=== PATIENT | female | born 1975 | race Caucasian/White ===

== ENCOUNTER 2022-05-30 15:25 | Observation (INO) | payer OTHER, SELFPAY ==
[2022-05-30] VITALS (37 sets, daily range): BP systolic 148–189; BP diastolic 69–106; PULSE 80–115; RESP 12–22; TEMP 36.2–36.9; O2SAT 98–100; BMI 37.4
--- NOTE | ~2022-05-30 | NM_ITS ---
EXAMINATION: NM thomas stress w perfusion DATE: 05/31/2022 13:29 INDICATION: Chest pain. TECHNIQUE: Rest images were obtained following intravenous administration of 10.5 mCi Tc99m tetrofosm in (Myoview). The patient was infused intravenously with Lexiscan (regadenoson). Then, 33 mCi Tc99m t etrofosmin (Myoview) was administered intravenously, and stress images were obtained. Data was recons tructed into short axis and horizontal and vertical long axis SPECT images. Gated SPECT images were a lso obtained. COMPARISON: None. FINDINGS: There is no definite reversible or fixed perfusion abnormality to suggest ischemia or infar ction. There is no segmental wall motion abnormality. Left ventricular ejection fraction measures > 70%. IMPRESSION: 1. No definite ischemia or infarct. 2. Normal left ventricular ejection fraction measuring >70%. Reviewed, dictated and finalized at location A. CELL TECHNICIAN
--- NOTE | ~2022-05-30 | XR_ITS ---
EXAMINATION: XR chest 2V DATE: 05/30/2022 16:12 INDICATION: Left chest pain. TECHNIQUE: Frontal and lateral views of the chest were obtained. COMPARISON: None. FINDINGS: The chest demonstrates clear lungs without pneumonia, pleural effusion, or pneumothorax. Th e heart size is normal. IMPRESSION: 1. No acute cardiopulmonary disease. Reviewed, dictated and finalized at location A. MINER
--- NOTE | 2022-05-30 15:29 | ECG_ITS ---
Measurements Intervals [place] Rate: 76 P: 59 NM: 161 QRS: 50 QRSD: 90 T: 9 QT: 366 QTc: 413 Interpretive Statements SINUS RHYTHM WITH SINUS ARRHYTHMIA BORDERLINE ST-T WAVE ABNORMALITY- ANTEROLAT/INF LEADS BORDERLINE ECG NO PREVIOUS ECG AVAILABLE FOR COMPARISON Electronically Signed On 05-30-2022 16:34:59 UNIT MANAGER RN by Mick Begum D.O.
[2022-05-30 15:51] LABS: Basophils Percent Auto 0.2 % (0.2-1.2); Eosinophils Absolute Auto 0.3 K/mm3 (0-0.3); Eosinophils Percent Auto 2.8 % (0-4.4); Hematocrit 36.9 % (37.0-47.0); Hemoglobin 11.8 g/dL (12.0-15.0); Immature Granulocyte Absolute 0.04 K/mm3 (0.00-0.031); Immature Granulocyte Percent A 0.4 % (0-0.5); Lymphocytes Absolute Auto 3.29 K/mm3 (0.9-3.2); Lymphocytes Percent Auto 36.8 % (18.3-44.2); Mean Corpuscular Hemoglobin 28.5 pg (26-34); Mean Corpuscular Volume 89.1 fl (80-100); Mean Platelet Volume 9.6 fl (7.4-10.4); Monocytes Absolute Auto 0.5 K/mm3 (0.1-0.6); Monocytes Percent Auto 5.7 % (2.6-8.5); Neutrophils Absolute Auto 4.8 K/mm3 (1.3-6.7); Neutrophils Percent Auto 54.1 % (45.5-73.1); Platelet Count Result 333 k/mm3 (150-375); Red Blood Count 4.14 M/mm3 (4.2-5.4); Red Cell Distribution Width 13.1 % (11.5-14.5); White Blood Count 8.9 K/mm3 (4.5-10.0)
[2022-05-30 15:53] LABS: Alanine Aminotransferase 32 U/L (6-35); Albumin Level 4.4 g/dL (3.5-5.1); Alkaline Phosphatase 88 U/L (38-126); Anion Gap 8 mmol/L (8-16); Aspartate Amino Transferase 23 U/L (14-36); Bilirubin,Total 0.4 mg/dL (0.2-1.3); Blood Urea Nitrogen 10 mg/dL (7-17); Calcium 9.2 mg/dL (8.4-10.2); Carbon Dioxide 28 mmol/L (22-30); Chloride 103 mmol/L (98-107); Estimated CRCL calculation 127 ml/min; Estimated Glomerular Filt Rate > 60; Glucose 122 mg/dL (65-110); Lipase 42 U/L (23-300); Potassium 3.8 mmol/L (3.4-5.0); Sodium 139 mmol/L (137-145)
[2022-05-30 15:54] LABS: Prothrombin Time 12.4 Seconds (11.1-14.7)
[2022-05-30 15:55] LABS: Partial Thromboplastin Time 26.7 SECONDS (22.3-36.8)
[2022-05-30 16:05] LABS: Troponin I < 0.012 ng/mL (0.000-0.034)
[2022-05-30] MEDS: ASPIRIN 81 MG CHEWABLE TABLET 324 MG PO (17:41)
--- NOTE | 2022-05-30 18:11 | ED.CHESTPAIN ---
HPI - Chest Pain General Chief Complaint: Chest Pain <ZULLY Arizmendi Last Filed: 05/31/22 02:06> Stated Complaint: CP <ZULLY Arizmendi Last Filed: 05/31/22 02:06> Time Seen by Provider: 05/30/22 17:39 <ZULLY Arizmendi Last Filed: 05/31/22 02:06> Source: patient <ZULLY Arizmendi Last Filed: 05/31/22 02:06> Mode of arrival: ambulatory <ZULLY Arizmendi Last Filed: 05/31/22 02:06> Limitations: no limitations <ZULLY Arizmendi Last Filed: 05/31/22 02:06> History of Present Illness HPI narrative: Patient is a 47-year-old female who presents the ED with report of chest pain. Patient reports she began feeling off around 10:30 AM this morning at work. She developed diaphoresis, nausea, dizziness at around 11 AM. She then developed pain just to the left of her sternum, sharp and stabbing in nature, radiating to her left shoulder and through to her back. She states the pain initially lasted for approximately 1 hour before improving. The pain has been intermittent since then, with episodes occurring every 30 minutes or so. She denies any pain currently or for the last hour since being in the ER. She did also report having tingling in her extremities, mild shortness of breath. She denies any vomiting, abdominal pain, lower extremity pain or swelling, recent cough or cold symptoms, fevers, or history of coronary artery disease. Patient is a history of prediabetes, hypertension on lisinopril, borderline hypercholesterolemia, family history of heart disease in her father at age 68. No smoking history. No history of blood clots. <ZULLY Arizmendi Last Filed: 05/31/22 02:06> Related Data Home Medications: Home Medications Medication Instructions Recorded Confirmed albuterol sulfate 90 mcg/actuation 2 puff inhalation Q6H PRN 05/30/22 05/30/22 aerosol inhaler Shortness Of Breath fluticasone furoate 100 1 inh inhalation DAILY 05/30/22 05/30/22 mcg-vilanterol 25 mcg/dose inhalation powder (Breo Ellipta) lisinopril 20 mg tablet 20 mg PO DAILY 05/30/22 05/30/22 omeprazole 40 mg capsule,delayed 40 mg PO Q12H 05/30/22 05/30/22 release trazodone 50 mg tablet 50 mg PO HS PRN Insomnia 05/30/22 05/30/22 <Demi Brown PA-C - Last Filed: 05/31/22 02:06> Allergies/Adverse Reactions: Allergies Allergy/AdvReac Type Severity Reaction Status Date / Time Antihistamines - Alkylamine Allergy Severe Hives Verified 05/30/22 21:40 Antihistamines - Ethanolamine Allergy Severe Hives Verified 05/30/22 21:40 Antihistamines - Allergy Severe Hives Verified 05/30/22 21:40 Ethylenediamine Antihistamines - Piperazine Allergy Severe Hives Verified 05/30/22 21:40 Antihistamines - Piperidine Allergy Severe Hives Verified 05/30/22 21:40 oseltamivir [From Tamiflu] Allergy Severe Anaphylactic Verified 05/30/22 21:40 Shock <Demi Brown PA-C - Last Filed: 05/31/22 02:06> Review of Systems Review of Systems: CONSTITUTIONAL: Denies fever, chills, or sweats. ENT: Denies rhinorrhea, congestion, sore throat. CARDIOVASCULAR: See HPI. RESPIRATORY: See HPI. GASTROINTESTINAL: See HPI. GENITOURINARY: Denies dysuria or hematuria. SKIN: Denies rash or itching. MUSCULOSKELETAL: See HPI. NEUROLOGIC: See HPI. <Demi Brown PA-C - Last Filed: 05/31/22 02:06> All systems reviewed & are unremarkable except as noted in HPI and below <Demi Brown PA-C - Last Filed: 05/31/22 02:06> PMFSH Past Medical History Medical History: Medical History GERD (gastroesophageal reflux disease) HTN (hypertension) Prediabetes <Demi Brown PA-C - Last Filed: 05/31/22 02:06> Surgical History Surgical History: Surgical History No pertinent past surgical history
[2022-05-30 18:51] LABS: Troponin I < 0.012 ng/mL (0.000-0.034)
[2022-05-30 19:41] LABS: Influenza A QL RT-PCR Negative (Negative); Influenza B QL RT-PCR Negative (Negative); SARS-CoV-2 RNA PCR Negative
--- NOTE | 2022-05-30 19:47 | PM.IMHP ---
H&P: HPI History of Present Illness Date/Time: 05/30/22 19:48 Chief Complaint: 47 years old female with past medical history of hypertension hyperlipidemia diabetes presented to the hospital with chest pain retrosternal sharp in nature intermitted radiating to the left arm and the back now patient is complaining of burning pain better and then when she came in patient also has episodes of nausea and sweating also has lower extremity edema patient has significant family history of coronary artery disease her dad has a heart attack at age of 59 has multiple 1st degree relatives with heart disease troponin was negative EKG no significant finding patient will be admitted to the hospital for further evaluation and treatment of chest pain Patient was given aspirin nitro and Protonix in the ER Review of Systems Review of Systems: 12 system review was done negative except above PMFSH Past Medical History Medical History (Updated 05/30/22 @ 19:51 by Tina Yee MD) GERD (gastroesophageal reflux disease) HTN (hypertension) Prediabetes Surgical History Surgical History (Updated 05/30/22 @ 18:24 by Demi Brown PA-C) No pertinent past surgical history Family History Family History (Updated 05/30/22 @ 18:25 by Demi Brown PA-C) Father Acute myocardial infarction father of VT at age 68 Social History Social History (Updated 05/30/22 @ 18:24 by Demi Brown PA-C) Smoking status: Never smoker Second hand tobacco smoke exposure: Yes Meds Home Medications and Allergies Allergies Allergy/AdvReac Type Severity Reaction Status Date / Time Antihistamines - Alkylamine Allergy Hives Verified 05/30/22 17:33 Antihistamines - Ethanolamine Allergy Hives Verified 05/30/22 17:33 Antihistamines - Allergy Hives Verified 05/30/22 17:33 Ethylenediamine Antihistamines - Piperazine Allergy Hives Verified 05/30/22 17:33 Antihistamines - Piperidine Allergy Hives Verified 05/30/22 17:33 Vital Signs Vital Signs - 24 hr 05/30/22 15:30 05/30/22 17:24 05/30/22 17:30 Temperature 98.5 F 98.4 F Pulse Rate 89 93 Respiratory Rate 16 15 Blood Pressure 181/97 H 155/79 H Pulse Oximetry 100 100 Oxygen Delivery Room Air 05/30/22 17:31 05/30/22 17:35 05/30/22 17:27 Temperature Pulse Rate 99 Respiratory Rate 15 Blood Pressure Pulse Oximetry 100 99 100 Oxygen Delivery Room Air Room Air 05/30/22 17:28 05/30/22 17:30 05/30/22 17:32 Temperature Pulse Rate 86 97 94 Respiratory Rate 14 15 13 Blood Pressure 155/79 H Pulse Oximetry 100 100 100 Oxygen Delivery 05/30/22 17:45 Temperature Pulse Rate 98 Respiratory Rate 14 Blood Pressure Pulse Oximetry 100 Oxygen Delivery Exam Narrative: GENERAL: Well appearing, well-nourished, non-toxic, in no acute distress. HEAD: Normocephalic, atraumatic. NECK: Supple. No adenopathy, no masses. RESPIRATORY: Airway patent, respirations nonlabored. Clear to auscultation bilaterally, no rales, rhonchi, wheezing. CARDIOVASCULAR: Regular rate and rhythm without murmurs, rubs, or gallops. Peripheral pulses 2+ and equal bilaterally. ABDOMINAL: Soft, nontender, nondistended, no hepatosplenomegaly. Normoactive BS. MUSCULOSKELETAL: Positive lower extremity edema negative chest tenderness SKIN: Warm, dry, normal color. No rashes. NEURO: A&O X3. Speech clear. Cranial nerves II-XII grossly intact. Steady gait. No ataxic movements. PSYCHIATRIC: Appropriate mood and affect. Normal interaction. H&P: Results Labs Labs: Short CBC 05/30/22 Range/Units 15:36 WBC 8.9 (4.5-10.0) K/mm3 Hgb 11.8 L (12.0-15.0) g/dL Hct 36.9 L (37.0-47.0) % Plt Count 333 (150-375) k/mm3 BMP 05/30/22 15:36 Sodium 139 Potassium 3.8 Chloride 103 Carbon Dioxide 28 BUN 10 Creatinine 0.60 L Glucose 122 H Calcium 9.2 Cardiac Enzymes 05/30/22 05/30/22 Range/Units 15:36 18:20 Troponin I < 0.0
[2022-05-30] MEDS: PANTOPRAZOLE SODIUM IV 40 MG VIAL IV PUSH (20:10)
[2022-05-30] MEDS: NITROGLYCERIN SL 0.4 MG TABLET SUBLINGUAL ×2 (20:10→21:58)
[2022-05-30 20:18] LABS: Creatine Kinase 63 U/L (30-135)
[2022-05-30 20:43] LABS: Troponin I < 0.012 ng/mL (0.000-0.034)
[2022-05-30 20:59] LABS: Amphetamine Screen Urine Negative (Negative); Barbiturate Screen Urine Negative (Negative); Benzodiazepines Screen Urine Negative (Negative); Cannabinoid Screen Urine Negative (Negative); Cocaine Screen Urine Negative (Negative); Methadone Screen Urine Negative (Negative); Opiate Screen Urine Negative (Negative); Phencyclidine Screen Urine Negative (Negative)
--- NOTE | 2022-05-30 21:15 | PC.NURSE ---
This patient, Briana Ford, was admitted to IMU Room 205-01. Patient/family oriented to hospital policies and general routines including ID bracelet, bed and alarms, visiting hours, pain management, procedures, bathroom and other care routines, personal items, smoking policy, room service/diet, and visiting hours. Information on how to activate the Rapid Response Team has been discussed. Patient/Family are encouraged to report perceived risks to care and to ask questions if they do not understand what they are told or what they should do.
[2022-05-30] MEDS: hydrALAZINE HCL 20 MG/ML VIAL 10 MG IV PUSH (21:21)
[2022-05-30 21:51] LABS: Troponin I < 0.012 ng/mL (0.000-0.034)
[2022-05-30] MEDS: METOPROLOL TARTRATE 25 MG TABLET PO (21:55)
[2022-05-30] MEDS: FAMOTIDINE 20 MG TABLET PO (21:55)
--- NOTE | 2022-05-30 22:00 | ECG_ITS ---
Measurements Intervals [place] Rate: 104 P: 64 [place]: 151 QRS: 55 QRSD: 81 T: 23 QT: 341 QTc: 450 Interpretive Statements SINUS TACHYCARDIA NONSPECIFIC ST & T-WAVE ABNORMALITY- ANTEROLAT/INF LEADS BORDERLINE ECG COMPARED TO ECG 05/30/2022 15:33:13 SINUS TACHYCARDIA NOW PRESENT Electronically Signed On 05-31-2022 6:38:08 CREDIT CARD SPECIALIST by Mcik Begum D.O.
[2022-05-30] MEDS: NITROGLYCERIN OINTMENT 1 INCH DOSE TRANSDERM (22:52)
[2022-05-30] MEDS: FUROSEMIDE INJ 40 MG/4 ML VIAL 20 MG IV PUSH (22:52)
[2022-05-31] VITALS (13 sets, daily range): BP systolic 121–138; BP diastolic 57–76; PULSE 81–92; RESP 16–20; TEMP 36.3–36.7; O2SAT 97–99
[2022-05-31 02:36] LABS: Troponin I < 0.012 ng/mL (0.000-0.034)
[2022-05-31 05:12] LABS: Basophils Percent Auto 0.5 % (0.2-1.2); Eosinophils Absolute Auto 0.3 K/mm3 (0-0.3); Eosinophils Percent Auto 3.3 % (0-4.4); Hematocrit 35.6 % (37.0-47.0); Hemoglobin 11.4 g/dL (12.0-15.0); Immature Granulocyte Absolute 0.03 K/mm3 (0.00-0.031); Immature Granulocyte Percent A 0.4 % (0-0.5); Lymphocytes Absolute Auto 2.86 K/mm3 (0.9-3.2); Lymphocytes Percent Auto 34.2 % (18.3-44.2); Mean Corpuscular Hemoglobin 28.3 pg (26-34); Mean Corpuscular Volume 88.3 fl (80-100); Monocytes Absolute Auto 0.6 K/mm3 (0.1-0.6); Monocytes Percent Auto 6.7 % (2.6-8.5); Neutrophils Absolute Auto 4.6 K/mm3 (1.3-6.7); Neutrophils Percent Auto 54.9 % (45.5-73.1); Platelet Count Result 326 k/mm3 (150-375); Red Blood Count 4.03 M/mm3 (4.2-5.4); White Blood Count 8.4 K/mm3 (4.5-10.0)
[2022-05-31 05:21] LABS: Alanine Aminotransferase 29 U/L (6-35); Albumin Level 4.1 g/dL (3.5-5.1); Alkaline Phosphatase 69 U/L (38-126); Anion Gap 5 mmol/L (8-16); Aspartate Amino Transferase 23 U/L (14-36); Bilirubin,Total 0.6 mg/dL (0.2-1.3); Blood Urea Nitrogen 12 mg/dL (7-17); Calcium 9.1 mg/dL (8.4-10.2); Carbon Dioxide 29 mmol/L (22-30); Chloride 100 mmol/L (98-107); Estimated CRCL calculation 126 ml/min; Estimated Glomerular Filt Rate > 60; Glucose 112 mg/dL (65-110); Sodium 134 mmol/L (137-145)
--- NOTE | 2022-05-31 06:00 | ECHO_ITS ---
Patient Info Name: Briana Ford Age: 47 years : 1975 Gender: Female Ht: 67 in Wt: 238 lbs BSA: 2.31 m2 HR: 92 bpm BP: 135 / 74 mmHg Heart Rhythm: Sinus Rhythm Technical Quality: Fair Exam Date: 05/31/2022 9:29 AM Exam Location: [facility] Pulmonary Patient Status: Inpatient Admit Date: 05/30/2022 Staff Ordering Physician: Demi Brown PA-C Research Archaeologist: Sue Byrd RDCS Attending Provider: Tina Yee M.A., MD Referring Physician: Kevin MALONEY; Exam Type: CA echo dop color flow w con Study Info Indications R07.9 - Chest pain, unspecified Complete two-dimensional, color flow and Doppler transthoracic echocardiogram is performed with contrast to opacify the left ventricle and to improve the deliniation of the left ventricle endocardial borders. Contrast/Agitated Saline Contrast/Ag. Saline: Definity Amount: 3.00 ml Administered By: Sue Byrd RDCS IV Access Condition: patent with no signs of infiltration Summary 1. Left ventricular chamber dimension is normal. 2. Left ventricular systolic function is normal, estimated at >70%. 3. The left ventricular diastolic function is normal. 4. Right ventricular systolic function is normal. 5. There is trace mitral valve regurgitation. 6. There is trace tricuspid valve regurgitation. 7. No pulmonary hypertension. Left Ventricle Left ventricular chamber dimension is normal. Left ventricular systolic function is normal, estimated at >70%. There is no increased left ventricular wall thickness. The left ventricular diastolic function is normal. Right Ventricle Right ventricular chamber dimension is normal. Right ventricular systolic function is normal. Left Atria Left atrial chamber dimension is normal. Right Atria Right atrial chamber dimension is normal. Atrial Septum Intact interatrial septum visualized by color flow imaging. Aortic Valve The aortic valve is not well visualized. There is no aortic valve stenosis. There is no aortic valve regurgitation. Pulmonic Valve The pulmonic valve is not well visualized. Mitral Valve The mitral valve has normal leaflets. There is no mitral valve stenosis. There is trace mitral valve regurgitation. Tricuspid Valve There is no significant tricuspid valve stenosis. There is trace tricuspid valve regurgitation. Pericardium/Pleural The pericardium appears epicardial fat pad. There is no pericardial effusion. Inferior Vena Cava Normal inferior vena cava with >50% collapse upon inspiration consistent with normal right atrial pressure, 3 mmHg. Aorta The aortic root size at the sinus of Valsalva is normal. Left Ventricular Outflow Tract Name Value Normal LVOT 2D LVOT Diameter 1.96 cm LVOT Doppler LVOT Peak Gradient 6 mmHg LVOT Mean Gradient 3 mmHg LVOT VTI 22.93 cm LVOT VTI/AV VTI Ratio 0.76 LVOT Stroke Volume 69.11 ml LVOT CO
[2022-05-31 07:34] LABS: Glucose Point of Care 107 mg/dl (65-105)
[2022-05-31] MEDS: ASPIRIN 81 MG ENTERIC TABLET PO (09:14)
[2022-05-31] MEDS: ONDANSETRON INJ 4 MG/2 ML VIAL IV PUSH (09:14)
[2022-05-31] MEDS: NITROGLYCERIN OINTMENT 1 INCH DOSE TRANSDERM (09:14)
[2022-05-31] MEDS: FAMOTIDINE 20 MG TABLET PO (09:14)
[2022-05-31] MEDS: METOPROLOL TARTRATE 25 MG TABLET PO (09:14)
--- NOTE | 2022-05-31 09:40 | EST_ITS ---
Patient Info Name: Briana Ford Age: 47 years : 1975 Gender: Female Ht: 67 in Wt: 238 lbs BSA: 2.31 m2 HR: 86 bpm BP: 97 / 99 mmHg Heart Rhythm: Sinus Rhythm Exam Date: 05/31/2022 12:13 PM Exam Location: [facility] Stress Patient Status: Inpatient Admit Date: 05/30/2022 Staff Ordering Physician: Kishan Garza MD Attending Provider: Tina Yee M.A., MD Exercise Technologist: Janell Beltran CT Exercise Physician: Anu Barnes MD Exam Type: CA stress thomas w NM Study Info Indications R07.9 - Chest pain, unspecified A regadenoson stress test was performed. Summary 1. Abnormal ST segment depression consistent with myocardial ischemia. However the patient has minor resting ST changes which reduces the specificity of this finding. 2. Nuclear test results to follow. Protocol: Lexiscan Stress ECG Details Stage: REST Duration (min): 1 min : 25 sec HR (bpm): 87 SBP (mmHg): 97 DBP (mmHg): 79 Stage: REST Duration (min): 7 min : 30 sec HR (bpm): 90 SBP (mmHg): 97 DBP (mmHg): 79 Stage: STAGE 1 Duration (min): 1 min : 0 sec HR (bpm): 120 SBP (mmHg): 141 DBP (mmHg): 83 Stage: RECOVERY Duration (min): 1 min : 0 sec HR (bpm): 117 SBP (mmHg): 141 DBP (mmHg): 83 Stage: RECOVERY Duration (min): 2 min : 0 sec HR (bpm): 114 SBP (mmHg): 141 DBP (mmHg): 83 Stage: RECOVERY Duration (min): 3 min : 0 sec HR (bpm): 106 SBP (mmHg): 130 DBP (mmHg): 75 Stage: RECOVERY Duration (min): 4 min : 0 sec HR (bpm): 108 SBP (mmHg): 130 DBP (mmHg): 75 Stage: RECOVERY Duration (min): 5 min : 0 sec HR (bpm): 104 SBP (mmHg): 134 DBP (mmHg): 73 Stage: RECOVERY Duration (min): 6 min : 0 sec HR (bpm): 98 SBP (mmHg): 134 DBP (mmHg): 73 Stage: RECOVERY Duration (min): 7 min : 0 sec HR (bpm): 106 SBP (mmHg): 127 DBP (mmHg): 68 Stage: RECOVERY Duration (min): 7 min : 11 sec HR (bpm): 103 SBP (mmHg): 127 DBP (mmHg): 68 Rest HR: 90 bpm Peak HR: 122 bpm Rest Sys BP: 97 mmHg Peak Sys BP: 141 mmHg Max Pred HR: 174 bpm % Max Pred HR: 70 % Target HR: 148 bpm Max RPP: 17,202 bpm*mmHg Total Time: 1 min : 0 sec Rest Mendoza BP: 79 mmHg Peak Mendoza BP: 83 mmHg Total Dose: 0.4 mg Resting ECG Normal sinus rhythm. Minor resting ST/T wave changes. Stress ECG Borderline ST depression - inferolateral leads. Arrhythmias None. Report Signatures
[2022-05-31 10:04] LABS: Cholesterol 217 mg/dL (0-200); HDL Direct 35 mg/dL; Triglycerides 137 mg/dL (<150)
[2022-05-31] MEDS: PERFLUTREN LIPID MICROSPHERES 1.5 ML VIAL DILUTED TO 10 ML TOTAL VOLUME IV PUSH (10:07)
--- NOTE | 2022-05-31 10:07 | IVDEFINITY ---
Prior to administration of IV Definity the patient was educated on the risks and benefits of the imaging enhancing agent including potential adverse side effects. The patient verbalized understanding. Allergies were verified. No exclusion criteria were identified and at least one of the following inclusion criteria were met: 1) physician request, 2) patient technically difficult to image (per the [place] [employer] Echocardi[employer] guidelines of two or more segments not discernable within the apical view), or 3) questionable left ventricular function. ?
[2022-05-31 10:15] LABS: LDL Cholesterol Direct 146 mg/dL
--- NOTE | 2022-05-31 10:58 | PM.CNCAR ---
Assessment and Plan Assessment and plan (1) Chest pain: Qualifiers: Chest pain type: other chest pain Qualified Code(s): R07.89 - Other chest pain Code(s): R07.9 - Chest pain, unspecified Status: Acute Assessment and Plan: EKG x 2 with sinus rhythm with nonspecific STTW abnormality. No ischemia noted on EKGs. Troponins negative x 5. Will obtain MPI stress test. Lipid panel shows LDL is 146. ASCVD risk calculated at 3.0% (although A1c is pending). (2) Prediabetes: Code(s): R73.03 - Prediabetes Status: Acute Assessment and Plan: Check A1c (3) HTN (hypertension): Qualifiers: Hypertension type: unspecified Qualified Code(s): I10 - Essential (primary) hypertension Code(s): I10 - Essential (primary) hypertension Status: Acute Assessment and Plan: Noted to be hypertensive on presentation with SBP as high as 180s. On Lisinopril at home, which was continued. Started on beta chikis. Blood pressure is now controlled. History of Present Illness History of Present Illness Consult date/time: 05/31/22 10:58 Requesting physician: Demi Brown PA-C Consult reason: chest pain Reason For Visit: Chest pain, Heart score =5 Narrative: We are consulted for chest pain. This is a 47-year-old female with a history of hypertension, prediabetes, GERD who presented to [place] ER with chest pain. Patient reports that she started feeling off 3/7 in the AM around 10:30AM. Patient developed nausea, dizziness. Had left breast chest pain that radiated to her shoulder and around the back of her shoulder. Pain lasted for about an hour before resolving and then had some recurrences. Patient currently states she feels okay. Is getting an echocardiogram done at the time of my evaluation. Family history significant for father with MS at age 68. EKG x 2 shows sinus rhythm with nonspecific STTW changes. Troponins negative x 5. Review of Systems Review of Systems: All systems reviewed & are unremarkable except as noted in HPI and below (HPI) [facility] Past Medical History Medical History GERD (gastroesophageal reflux disease) HTN (hypertension) Prediabetes Surgical History Surgical History No pertinent past surgical history Family History Family History Father Acute myocardial infarction father of MS at age 68 Hyperlipemia Chronic obstructive pulmonary disease Hypertension Mother Lymphoma Breast cancer Mother No problems noted. Social History Social History Smoking status: Never smoker Second hand tobacco smoke exposure: Yes Alcohol intake: never Substance use: never Substance use type: does not use Lack of Transportation: No Lack of Food: Never True Current Housing: I Have Housing Concerned About Future Housing: No Difficulty Paying Gas/Electric Bills: YES Difficulty Paying for Meds: No Currently Unemployed: No Education: Associate Degree Difficulty w/ Childcare or Family Care: No Spiritual care concerns: No Meds Home Medications and Allergies Home Medications Medication Instructions Recorded Confirmed Type albuterol sulfate 90 mcg/actuation 2 puff inhalation Q6H PRN 05/30/22 05/30/22 History aerosol inhaler Shortness Of Breath fluticasone furoate 100 1 inh inhalation DAILY 05/30/22 05/30/22 History mcg-vilanterol 25 mcg/dose inhalation powder (Breo Ellipta) lisinopril 20 mg tablet 20 mg PO DAILY 05/30/22 05/30/22 History omeprazole 40 mg capsule,delayed 40 mg PO Q12H 05/30/22 05/30/22 History release trazodone 50 mg tablet 50 mg PO HS PRN Insomnia 05/30/22 05/30/22 History Allergies Allergy/AdvReac Type Severity Reaction Status Date / Time Antihistamines - Alkyl
[2022-05-31 11:23] LABS: Hemoglobin A1C 5.5 % (<5.7)
--- NOTE | 2022-05-31 12:08 | PCCCNOTE ---
On 05/31/22, the student, [Ary Joe], provided care and completed [facility]. I have reviewed the student's documentation and agree with the findings.
[2022-05-31 13:37] LABS: Glucose Point of Care 135 mg/dl (65-105)
--- NOTE | 2022-05-31 14:27 | PM.DS ---
DS: Admitting Diagnosis Discharge Date 05/31/22 Admitting Diagnosis cp DS: Discharge Diagnosis Discharge Diagnosis (1) Chest pain: Qualifiers: Chest pain type: other chest pain Qualified Code(s): R07.89 - Other chest pain Code(s): R07.9 - Chest pain, unspecified Status: Acute Assessment and Plan: Rule out ACS serial cardiac marker ECG cardiology consult NPO after midnight Urine drug screen beta blockers aspirin nitrate (2) Prediabetes: Code(s): R73.03 - Prediabetes Status: Acute Assessment and Plan: Insulin sliding scale (3) HTN (hypertension): Qualifiers: Hypertension type: unspecified Qualified Code(s): I10 - Essential (primary) hypertension Code(s): I10 - Essential (primary) hypertension Status: Acute Assessment and Plan: Uncontrolled Added metoprolol Added p.r.n. hydralazine (4) GERD (gastroesophageal reflux disease): Code(s): K21.9 - Gastro-esophageal reflux disease without esophagitis Status: Acute Assessment and Plan: Pepcid (5) Lower extremity edema: Code(s): R60.0 - Localized edema Status: Acute Assessment and Plan: Probable acute on top of chronic diastolic CHF exacerbation secondary to hypertensive urgency Give IV Lasix Follow echo DS: Summary Hospital Course Hospital Course: admitted for cp, appiah negative fu cardiology Time Spent with Patient Time attestation: Total time spent providing and/or coordinating discharge services: Exam Narrative: GENERAL: Well appearing, well-nourished, non-toxic, in no acute distress. HEAD: Normocephalic, atraumatic. NECK: Supple. No adenopathy, no masses. RESPIRATORY: Airway patent, respirations nonlabored. Clear to auscultation bilaterally, no rales, rhonchi, wheezing. CARDIOVASCULAR: Regular rate and rhythm without murmurs, rubs, or gallops. Peripheral pulses 2+ and equal bilaterally. ABDOMINAL: Soft, nontender, nondistended, no hepatosplenomegaly. Normoactive BS. MUSCULOSKELETAL: Positive lower extremity edema negative chest tenderness SKIN: Warm, dry, normal color. No rashes. NEURO: A&O X3. Speech clear. Cranial nerves II-XII grossly intact. Steady gait. No ataxic movements. PSYCHIATRIC: Appropriate mood and affect. Normal interaction. DS: Data Data Completed and Pending Labs on day of discharge: Labs from last 24 hours 05/31/22 05/31/22 05/31/22 13:26 07:31 04:39 WBC 8.4 RBC 4.03 L Hgb 11.4 L Hct 35.6 L MCV 88.3 MCH 28.3 MCHC 32.0 RDW 13.0 Plt Count 326 MPV 10.0 Immature Gran % (Auto) 0.4 Neut % (Auto) 54.9 Lymph % (Auto) 34.2 Coke % (Auto) 6.7 Eos % (Auto) 3.3 Baso % (Auto) 0.5 Lymph # (Auto) 2.86 Coke # (Auto) 0.6 Eos # (Auto) 0.3 Baso # (Auto) 0.0 Abs Immat Gran (auto) 0.03 Absolute Neuts (auto) 4.6 Absolute Nucleated RBC 0.0 Nucleated RBC % 0.0 PT INR APTT D-Dimer Sodium Potassium Chloride Carbon Dioxide Anion Gap BUN Creatinine Estim Creat Clear Calc Estimated GFR Glucose POC Capillary Glucose 135 H 107 H Hemoglobin A1c Calcium Total Bilirubin AST ALT Alkaline Phosphatase Total Creatine Kinase Troponin I Total Protein Albumin Triglycerides Cholesterol LDL Cholesterol Direct HDL Direct Lipase TSH Urine Opiates Screen Urine Methadone Screen Ur Barbiturates Screen Ur Phencyclidine Scrn Ur Amphetamine Screen U Benzodiazepines Scrn Urine Cocaine Screen U Cannabinoids Screen Influenza A (RT-PCR) Influenza B (RT-PCR) SARS-CoV-2 RNA (RT-PCR) 05/31/22 05/31/22 05/31/22 04:38 04:36 04:36 WBC RBC Hgb Hct MCV MCH MCHC RDW Plt Count MPV Immature Gran % (Auto) Neut % (Auto) Lymph % (Auto) Coke % (Auto) Eos % (Auto) Baso % (Auto) Lymph # (Au
== END 2022-05-31 16:09 | disposition home or self-care (01) ==
LOC: ANHED 19:44 → ANHIMU 05-31 10:22
PROVIDERS: Emergency Medicine; Internal Medicine; Admitting Provider Internal Medicine; Emergency Provider Physician Assistant; Visit Provider Chiropractor
DX: R07.89 Other chest pain (principal); R73.03 Prediabetes; I10 Essential (primary) hypertension; K21.9 Gastro-esophageal reflux disease without esophagitis; R60.0 Localized edema; R11.0 Nausea; R41.0 Disorientation, unspecified; R00.1 Bradycardia, unspecified; R20.2 Paresthesia of skin; Z20.822 Contact with and (suspected) exposure to COVID-19; R06.02 Shortness of breath; G47.00 Insomnia, unspecified; R94.31 Abnormal electrocardiogram [ECG] [EKG]; E78.00 Pure hypercholesterolemia, unspecified; E66.9 Obesity, unspecified; Z68.37 Body mass index [BMI] 37.0-37.9, adult; Z79.51 Long term (current) use of inhaled steroids; Z79.899 Other long term (current) drug therapy; Z77.22 Contact with and (suspected) exposure to environmental tobacco smoke (acute) (chronic); Z82.49 Family history of ischemic heart disease and other diseases of the circulatory system; Z83.438 Family history of other disorder of lipoprotein metabolism and other lipidemia; Z83.6 Family history of other diseases of the respiratory system
CPT/HCPCS: 36415; 71046; 78452; 80053; 80061; 80307; 82550; 82948; 83036; 83690; 84443; 84484; 85025; 85380; 85610; 85730; 87636; 93005; 93017; 96374; 96375; 99284; 99285; A9270; A9502; C8929; C9113; G0378; J0360; J1940; J2405; J2785; Q9957

== ENCOUNTER 2022-05-31 20:27 | Emergency (ER) | payer OTHER, SELFPAY ==
--- NOTE | ~2022-05-31 | XR_ITS ---
EXAMINATION: XR chest 2V Exam Date/Time: 05/31/2022 21:00 INVESTMENT PROFESSIONAL HISTORY: chest pain Comparison: 05/30/2022. RESULT: Lines, tubes, and devices: None. Lungs and pleura: Clear. Cardiomediastinal silhouette: Stable. Other: No acute osseous or upper abdominal finding. IMPRESSION: No acute cardiopulmonary process. Reviewed, dictated and finalized at location K. STMENT PROFESSIONAL
[2022-05-31 20:33] VITALS: BP 174/83; PULSE 104; RESP 18; TEMP 37.1; O2SAT 100
[2022-05-31 21:38] VITALS: BP 167/85; TEMP 36.5
--- NOTE | 2022-05-31 21:52 | PC.NURSE ---
Attempted to draw blood from patient X2 with no success
--- NOTE | 2022-06-01 00:44 | ECG_ITS ---
Measurements Intervals [place] Rate: 96 P: 64 TX: 150 QRS: 58 QRSD: 93 T: 38 QT: 354 QTc: 448 Interpretive Statements SINUS RHYTHM NONSPECIFIC ST ABNORMALITY- ANTEROLAT/INF LEADS BASELINE ARTIFACT- I, II, AVR BORDERLINE ECG COMPARED TO ECG 05/30/2022 22:03:39 SINUS RHYTHM NOW PRESENT Electronically Signed On 06-01-2022 8:18:11 [employer] by Mick Begum D.O.
[2022-06-01 00:56] LABS: Basophils Percent Auto 0.4 % (0.2-1.2); Eosinophils Absolute Auto 0.2 K/mm3 (0-0.3); Eosinophils Percent Auto 1.5 % (0-4.4); Hematocrit 38.7 % (37.0-47.0); Hemoglobin 12.5 g/dL (12.0-15.0); Immature Granulocyte Absolute 0.04 K/mm3 (0.00-0.031); Immature Granulocyte Percent A 0.4 % (0-0.5); Lymphocytes Absolute Auto 3.88 K/mm3 (0.9-3.2); Mean Corpuscular HGB Conc 32.3 g/dl (32-36); Mean Corpuscular Hemoglobin 28.7 pg (26-34); Mean Corpuscular Volume 88.8 fl (80-100); Mean Platelet Volume 9.8 fl (7.4-10.4); Monocytes Absolute Auto 0.8 K/mm3 (0.1-0.6); Monocytes Percent Auto 7.2 % (2.6-8.5); Neutrophils Absolute Auto 5.6 K/mm3 (1.3-6.7); Neutrophils Percent Auto 53.5 % (45.5-73.1); Platelet Count Result 386 k/mm3 (150-375); Red Blood Count 4.36 M/mm3 (4.2-5.4); Red Cell Distribution Width 13.2 % (11.5-14.5); White Blood Count 10.5 K/mm3 (4.5-10.0)
[2022-06-01 01:04] LABS: Prothrombin Time 12.6 Seconds (11.1-14.7)
[2022-06-01 01:05] LABS: Partial Thromboplastin Time 28.1 SECONDS (22.3-36.8)
--- NOTE | 2022-06-01 01:11 | ED.RECABL ---
HPI - Recheck/Abnormal Lab/Rx General Chief Complaint: Recheck/Abnormal Lab/Rx <Ness Pruitt PA-C - Last Filed: 06/01/22 04:31> Stated Complaint: HTN <Ness Pruitt PA-C - Last Filed: 06/01/22 04:31> Time Seen by Provider: 06/01/22 00:33 <ZULLY Gresham Last Filed: 06/01/22 04:31> History of Present Illness HPI narrative: Patient is a 47-year-old female who just discharged from the hospital today after chest pain work-up here for evaluation of hypertension. Patient states that she felt weird today at home so she took her blood pressure and noted it was 199 systolic. She then felt very anxious and called an ambulance for further evaluation. She is unsure if she took her lisinopril this morning. She denies any chest pain currently, headache, visual changes, shortness of breath, to states that she still feels weird . She also noticed that she has hives on her hands and feet but is unsure what she was exposed to. <Ness Pruitt PA-C - Last Filed: 06/01/22 04:31> Related Data Home Medications: Home Medications Medication Instructions Recorded Confirmed albuterol sulfate 90 mcg/actuation 2 puff inhalation Q6H PRN 05/30/22 05/30/22 aerosol inhaler Shortness Of Breath fluticasone furoate 100 1 inh inhalation DAILY 05/30/22 05/30/22 mcg-vilanterol 25 mcg/dose inhalation powder (Breo Ellipta) lisinopril 20 mg tablet 20 mg PO DAILY 05/30/22 05/30/22 omeprazole 40 mg capsule,delayed 40 mg PO Q12H 05/30/22 05/30/22 release trazodone 50 mg tablet 50 mg PO HS PRN Insomnia 05/30/22 05/30/22 <ZULLY Gresham Last Filed: 06/01/22 04:31> Allergies/Adverse Reactions: Allergies Allergy/AdvReac Type Severity Reaction Status Date / Time Antihistamines - Alkylamine Allergy Severe Hives Verified 05/30/22 21:40 Antihistamines - Ethanolamine Allergy Severe Hives Verified 05/30/22 21:40 Antihistamines - Allergy Severe Hives Verified 05/30/22 21:40 Ethylenediamine Antihistamines - Piperazine Allergy Severe Hives Verified 05/30/22 21:40 Antihistamines - Piperidine Allergy Severe Hives Verified 05/30/22 21:40 oseltamivir [From Tamiflu] Allergy Severe Anaphylactic Verified 05/30/22 21:40 Shock <Ness Pruitt PA-C - Last Filed: 06/01/22 04:31> Review of Systems Review of Systems: Gen.: Denies fevers or chills Eyes: Denies eye pain or visual change ENT: Denies congestion Respiratory: Denies shortness of breath or cough CV: Denies chest pain or palpitations GI: Denies abdominal pain nausea, emesis or diarrhea denies burning, urgency, frequency or hematuria Musculoskeletal: Denies back pain or muscle pain Neuro: Denies numbness, tingling, weakness or focal weakness Skin: Reports rash to hands and feet Except as documented, all other systems reviewed and negative <Ness Pruitt PA-C - Last Filed: 06/01/22 04:31> [facility] Past Medical History Medical History: Medical History GERD (gastroesophageal reflux disease) HTN (hypertension) Prediabetes <Ness Pruitt PA-C - Last Filed: 06/01/22 04:31> Surgical History Surgical History: Surgical History No pertinent past surgical history <Ness Pruitt PA-C - Last Filed: 06/01/22 04:31> Family History Family History: Family History Father Acute myocardial infarction father of [place] at age 68 Hyperlipemia Chronic obstructive pulmonary disease Hypertension Mother Lymphoma Breast cancer Mother No problems noted. <Ness Pruitt PA-C - Last Filed: 06/01/22 04:31> Social History Social History: Social History Smoking status: Never smoker Second hand tobacco smoke exposure: Ye
[2022-06-01 01:13] LABS: Alanine Aminotransferase 32 U/L (6-35); Albumin Level 4.8 g/dL (3.5-5.1); Alkaline Phosphatase 85 U/L (38-126); Anion Gap 12 mmol/L (8-16); Aspartate Amino Transferase 29 U/L (14-36); Bilirubin,Total 0.7 mg/dL (0.2-1.3); Blood Urea Nitrogen 10 mg/dL (7-17); Calcium 9.4 mg/dL (8.4-10.2); Carbon Dioxide 25 mmol/L (22-30); Chloride 102 mmol/L (98-107); Estimated Glomerular Filt Rate > 60; Glucose 119 mg/dL (65-110); Lipase 45 U/L (23-300); Sodium 139 mmol/L (137-145)
[2022-06-01 01:15] LABS: Troponin I < 0.012 ng/mL (0.000-0.034)
[2022-06-01] MEDS: lisinopriL 20 MG TABLET PO (01:39)
[2022-06-01 02:45] VITALS: BP 155/85; PULSE 84; RESP 18; O2SAT 100
== END 2022-06-01 02:45 | disposition home or self-care (01) ==
PROVIDERS: Emergency Medicine; Emergency Provider Physician Assistant
DX: I10 Essential (primary) hypertension (principal); K21.9 Gastro-esophageal reflux disease without esophagitis; R73.03 Prediabetes; R94.31 Abnormal electrocardiogram [ECG] [EKG]; Z77.22 Contact with and (suspected) exposure to environmental tobacco smoke (acute) (chronic)
CPT/HCPCS: 36415; 71046; 78452; 80053; 80061; 80307; 82550; 82948; 83036; 83690; 84443; 84484; 85025; 85380; 85610; 85730; 87636; 93005; 93017; 96374; 96375; 99284; 99285; A9270; A9502; C8929; C9113; G0378; J0360; J1940; J2405; J2785; Q9957

== ENCOUNTER 2023-04-16 17:41 | Emergency (ER) | payer OTHER, SELFPAY ==
[2023-04-16 17:46] VITALS: BP 168/88; PULSE 97; RESP 20; TEMP 37; O2SAT 98
--- NOTE | 2023-04-16 18:01 | ED.URI ---
HPI - URI/Sore Throat General Chief Complaint: Upper Respiratory Infection Stated Complaint: Chest Congestion/Shortness Of Breath Time Seen by Provider: 04/16/23 18:13 Source: patient and RN notes reviewed Mode of arrival: ambulatory Limitations: no limitations History of Present Illness HPI Narrative: 47-year-old female presents with concern for cough postnasal drainage and chest congestion for 8 days. Reports she has been using her albuterol inhaler more often than usual. She has been using Coricidin without relief MD elicited complaint: cough Related Data Home Medications Medication Instructions Recorded Confirmed albuterol sulfate 90 mcg/actuation 2 puff inhalation Q6H PRN 05/30/22 05/30/22 aerosol inhaler Shortness Of Breath fluticasone furoate 100 1 inh inhalation DAILY 05/30/22 05/30/22 mcg-vilanterol 25 mcg/dose inhalation powder (Breo Ellipta) lisinopril 20 mg tablet 20 mg PO DAILY 05/30/22 05/30/22 omeprazole 40 mg capsule,delayed 40 mg PO Q12H 05/30/22 05/30/22 release trazodone 50 mg tablet 50 mg PO HS PRN Insomnia 05/30/22 05/30/22 amlodipine 5 mg tablet mg 04/16/23 ergocalciferol (vitamin D2) 1,250 04/16/23 mcg (50,000 unit) capsule olmesartan 40 mg tablet mg 04/16/23 rosuvastatin 5 mg tablet mg 04/16/23 venlafaxine 37.5 mg mg PO 04/16/23 capsule,extended release 24 hr Allergies Allergy/AdvReac Type Severity Reaction Status Date / Time Antihistamines - Alkylamine Allergy Severe Hives Verified 05/30/22 21:40 Antihistamines - Ethanolamine Allergy Severe Hives Verified 05/30/22 21:40 Antihistamines - Allergy Severe Hives Verified 05/30/22 21:40 Ethylenediamine Antihistamines - Piperazine Allergy Severe Hives Verified 05/30/22 21:40 Antihistamines - Piperidine Allergy Severe Hives Verified 05/30/22 21:40 oseltamivir [From Tamiflu] Allergy Severe Anaphylactic Verified 05/30/22 21:40 Shock Review of Systems Review of Systems: CONSTITUTIONAL: Denies malaise, chills, sweats, or fever. EYES: Denies visual changes, redness, or discharge. ENT: Denies rhinorrhea, congestion, sinus pain, otalgia and sore throat. Reports postnasal drainage CARDIOVASCULAR: Denies chest pain, palpitations, or edema. RESPIRATORY: Reports cough and chest congestion. Denies dyspnea. GASTROINTESTINAL: Denies abdominal pain, nausea, vomiting, diarrhea SKIN: Denies rash or itching. MUSCULOSKELETAL: Denies myalgia. NEUROLOGIC: Denies headache. All systems reviewed & are unremarkable except as noted in HPI and below PMFSH Past Medical History Medical History GERD (gastroesophageal reflux disease) HTN (hypertension) Prediabetes Surgical History Surgical History No pertinent past surgical history Family History Family History Father Acute myocardial infarction father of [place] at age 68 Hyperlipemia Chronic obstructive pulmonary disease Hypertension Mother Lymphoma Breast cancer Mother No problems noted. Social History Social History Smoking status: Never smoker Second hand tobacco smoke exposure: Yes Alcohol intake: never Substance use: never Substance use type: does not use Lack of Transportation: No Lack of Food: Never True Current Housing: I Have Housing Concerned About Future Housing: No Difficulty Paying Gas/Electric Bills: YES Difficulty Paying for Meds: No Currently Unemployed: No Education: Associate Degree Difficulty w/ Childcare or Family Care: No Spiritual care concerns: No Comments At time of signature, agree with nursing past medical, surgical, social and family history. There is no relevant family history pertinent to the presenting complaint Exam Narrative: GENERAL: Well-appearing, well-nourish
== END 2023-04-16 18:23 | disposition home or self-care (01) ==
PROVIDERS: Emergency Provider Nurse Practitioner
DX: J45.901 Unspecified asthma with (acute) exacerbation (principal); K21.9 Gastro-esophageal reflux disease without esophagitis; I10 Essential (primary) hypertension; R73.03 Prediabetes
CPT/HCPCS: 99213; G0463